=== PATIENT | female | born 1960 ===

== ENCOUNTER 2017-07-31 16:11 | Emergency (ER) | payer OTHER ==
[2017-07-31 16:11] VITALS: BMI 21.6
[2017-07-31 17:01] VITALS: BP 144/74; PULSE 79; RESP 16; TEMP 98.7; O2SAT 95
--- NOTE | 2017-07-31 17:24 | ED PDOC ---
Arrival/HPI - General Chief Complaint: Abdominal Pain Time Seen by Provider: 07/31/17 16:41 - History of Present Illness Narrative History of Present Illness (Text): 57 y/o F c PMHx DM p/w epigastric/RUQ pain x 1 day. Patient states that it has been for about the last 1 to 2 hours, lasting 1 minute at a time, intermittent, sharp, gradually improving and states did not have one episode of pain during my history and physical. Patient denies fever, chills, chest pain, dyspnea, nausea, vomiting, diarrhea, dysuria, vaginal bleeding, rash, trauma. Patient called by her PMD's office today and informed she will be started on insulin due to poor DM control. Past Medical History - Reproductive Menopause: Yes - Cardiac Hx Cardiac Disorders: Yes - Pulmonary Hx Respiratory Disorders: No - Neurological Hx Neurological Disorder: No - HEENT Hx HEENT Disorder: No - Renal Hx Renal Disorder: No - Endocrine/Metabolic Hx Diabetes Mellitus Type 2: Yes - Hematological/Oncological Hx Blood Disorders: No - Integumentary Hx Dermatological Disorder: No - Musculoskeletal/Rheumatological Hx Musculoskeletal Disorders: No Hx Falls: No - Gastrointestinal Hx Gastrointestinal Disorders: No - Genitourinary/Gynecological Hx Genitourinary Disorders: No - Psychiatric Hx Psychophysiologic Disorder: No Hx Depression: No Hx Emotional Abuse: No Hx Physical Abuse: No Hx Substance Use: No - Surgical History Other/Comment: c section, splenectomy, right breast infection lanced - Suicidal Assessment Feels Threatened In Home Enviroment: No Family/Social History Family/Social History: No Known Family HX Smoking Status: Current Some Days Smoker Hx Alcohol Use: No Hx Substance Use: No Hx Substance Use Treatment: No Allergies/Home Meds Allergies/Adverse Reactions: Allergies No Known Allergies Allergy (Verified 01/13/16 11:13) Home Medications: Home Meds Medication Instructions Recorded Confirmed Buprenorphine HCl/Naloxone HCl 1 emanuel SL DAILY 01/15/13 01/13/16 [Suboxone 8 mg-2 mg] Metformin Hydrochloride 500 mg PO DAILY 01/15/13 01/13/16 [Glucophage] Review of Systems - Physician Review All systems were reviewed & negative as marked: Yes - Review of Systems Constitutional: absent: Fevers Cardiovascular: absent: Chest Pain Physical Exam - Physical Exam Narrative Physical Exam (Text): Gen: NAD Head: NC Eyes: PERRL ENT: MMM Neck: Supple Chest: No tenderness CV: Regular rate Lungs: CTA b/l Abd: Soft, NT, ND Back: No CVA tenderness Skin: No rash Extremities: No swelling Neuro: Alert, no focal deficit Vital Signs Temp Pulse Resp BP Pulse Ox 07/31/17 16:57 98.7 F 79 16 144/74 95 Finger Stick Blood Glucose: 330 Medical Decision Making ED Course and Treatment: EKG NSR 80 bpm, no ST/T wave changes. Patient offered labs and US but refused US. Patient then walked out of ED prior to lab draw. - Lab Interpretations Lab Results: Lab Results 07/31/17 16:50: POC Glucose (mg/dL) 330 H Disposition/Present on Arrival - Present on Arrival Any Indicators Present on Arrival: Yes History of DVT/PE: No History of Uncontrolled Diabetes: Yes Urinary Catheter: No History of Decub. Ulcer: No History Surgical Site Infection Following: None - Disposition Have Diagnosis and Disposition been Completed?: No Diagnosis: Abdominal pain Disposition: ELOPEMENT - ER ONLY Disposition Time: 17:25 Condition: FAIR Referrals: Franck Roth MD [Primary Care Provider] - Follow up with primary
--- NOTE | 2017-08-03 16:39 | CARD ---
APPROVED REPORT EKG Measurement Heart [id number] <Conclusion> Normal sinus rhythm Possible Lateral infarct, age undetermined Abnormal ECG
== END 2017-07-31 17:38 | disposition left against medical advice (07) ==
LOC: ED 16:11
DX: R10.11 Right upper quadrant pain (principal); E11.9 Type 2 diabetes mellitus without complications